=== PATIENT | male | born 1975 | race Caucasian/White ===

== ENCOUNTER 2019-09-27 03:19 | Emergency (ER) | payer OTHER ==
[2019-09-27] MEDS ORDERED: NA CHLORIDE 0.9% 2,000 ML ONE (03:39)
[2019-09-27] MEDS ORDERED: ACETAMINOPHEN 500 MG TAB ONE (03:39)
[2019-09-27] MEDS ORDERED: KETOROLAC 30 MG/ML INJ ONE (03:51)
[2019-09-27 03:52] LABS: Absolute Lymphocytes (CBC) 0.6 K/uL (0.7-4.9); Basophils % 0.6 % (0-1.3); Hematocrit 44.8 % (39.6-49.0); Lymphocytes % 5.2 % (15.3-44.8); MPV 8.5 fL (7.6-11.3); RBC Red Blood Cell Count 5.16 M/uL (4.33-5.43)
[2019-09-27] MEDS ORDERED: ONDANSETRON 4 MG/2 ML VIAL ONE (03:55)
[2019-09-27 03:57] LABS: Protime INR 1.12
[2019-09-27 04:27] LABS: ALT/SGPT 34 U/L (12-78); AST/SGOT 18 U/L (15-37); Albumin 4.3 g/dL (3.4-5.0); Alkaline Phosphatase 57 U/L (45-117); Amylase Level 41 U/L (25-115); BUN Blood Urea Nitrogen 12 mg/dL (7-18); Bicarbonate 25 mmol/L (21-32); Bilirubin Direct 0.1 mg/dL (0-0.2); Bilirubin Total 0.5 mg/dL (0.2-1.0); CKMB Creatine Kinase MB < 1.0 ng/mL (0.3-3.6); Creatine Phosphokinase 69 U/L (39-308); Glucose Level 112 mg/dL (74-106); Lipase 68 U/L (73-393); Potassium 3.7 mmol/L (3.5-5.1); Sodium Level 140 mmol/L (136-145); Troponin (Emerg Dept Use Only) < 0.02 ng/mL (0.0-0.045)
[2019-09-27 04:35] LABS: Blood Morphology Comment NOT SEEN (NOT SEEN); Platelet Estimate ADEQ
[2019-09-27] MEDS ORDERED: MORPHINE 4 MG/ML SYR ONE (05:18)
[2019-09-27 05:23] LABS: Urine Blood NEGATIVE (NEG); Urine Glucose NEGATIVE (NEG); Urine Protein NEGATIVE (NEG); Urine pH 8.5 (5.0-7.0)
[2019-09-27] MEDS ORDERED: FENTANYL CITR 100 MCG/2 ML ONE (05:23)
--- NOTE | 2019-09-27 05:57 | ER ---
Nurse's Notes [facility] Name: Neville Ocasio Age: 44 yrs Sex: Male : 1975 Arrival Date: 09/27/2019 Time: 03:22 Bed 5 Private MD: Diagnosis: Fever, unspecified;Viral infection, unspecified;Headache;Arthralgia Presentation: 09/26 03:35 Chief complaint: Patient states: Reports around 3 PM last night he started having joint ea pain, sore throat, nausea and fever. Pt reports taking tylenol and advil yesterday evening. Coronavirus screen: Proceed with normal triage. Ebola Screen: No symptoms or risks identified at this time. Initial Sepsis Screen: Does the patient meet any 2 criteria? Temp <36.0*C (96.8*F)) or > 38.3*C (100.9*F). HR > 90 bpm. Yes Does the patient have a suspected source of infection? No. Patient's initial sepsis screen is negative. Risk Assessment: Do you want to hurt yourself or someone else? Patient reports no desire to harm self or others. Onset of symptoms was September 27, 2019. 03:35 Method Of Arrival: Wheelchair ea 03:35 Acuity: SAHIL 3 ea Historical: - Allergies: 03:41 No Known Allergies; ea - Home Meds: 03:41 None [Active]; ea - PMHx: 03:41 None; ea - PSHx: 03:41 None; ea - Immunization history:: Adult Immunizations unknown. - Social history:: Smoking status: Patient reports the use of cigarette tobacco products, denies chronic smoking, but will smoke occasionally. Screenin:38 Abuse screen: Denies threats or abuse. Nutritional screening: No deficits noted. ea Tuberculosis screening: No symptoms or risk factors identified. Fall Risk None identified. Assessment: 03:41 General: Appears uncomfortable, Behavior is restless. Pain: Complains of pain in joint ea pain. Neuro: Level of Consciousness is awake, alert, obeys commands, Oriented to person, place, time, situation. Cardiovascular: Patient's skin is warm and dry. Respiratory: Airway is patent Respiratory effort is even, unlabored, Respiratory pattern is regular, symmetrical. Derm: Skin is pink, warm \T\ dry. 05:23 Reassessment: Patient and/or family updated on plan of care and expected duration. Pain rv level reassessed. Patient is alert, oriented x 3, equal unlabored respirations, skin warm/dry/pink. updated on the test results. Patient states feeling better. 06:12 Reassessment: Patient and/or family updated on plan of care and expected duration. Pain ea level reassessed. Patient is alert, oriented x 3, equal unlabored respirations, skin warm/dry/pink. Discharge instruction given to patient, verbalized the understanding of instruction. Pt left ED ambulatory tolerating well. Patient states feeling better. Vital Signs: 03:35 BP 97 / 81; Pulse 113; Resp 20; Temp 102.7(O); Pulse Ox 97% on R/A; Weight 127.01 kg; ea Height 6 ft. 2 in. (187.96 cm); 03:45 BP 109 / 70; Pulse 91; Resp 19; Pulse Ox 97% on R/A; rv 04:15 BP 101 / 59; Pulse 90; Resp 17; Temp 100.1; Pulse Ox 93% on R/A; rv 05:15 BP 96 / 56; Pulse 74; Resp 13; Temp 99.2; Pulse Ox 94% on R/A; rv 06:14 BP 110 / 68; Pulse 77; Resp 19; Pulse Ox 97% ; ea 03:35 Body Mass Index 35.95 (127.01 kg, 187.96 cm) ea ED Course: 03:22 Patient arrived in ED. ag3 03:24 Huang Truong RN is Primary Nurse. rv 03:35 Jean Carlos Slaughter MD is Attending Physician. kdr 03:38 Triage completed. ea 03:38 Arm band placed on right wrist. Patient placed in an exam room, on a stretcher, on ea pulse oximetry. 03:38 Patient has correct armband on for positive identification. Placed in gown. Bed in low ea position. Call light in reach. Side rails up X2. 03:40 Inserted saline lock: 18 gauge in right antecubital area, using aseptic technique. rv Blood collected. 03:40 Initial lab(s) drawn, by la, sent to lab. First set of blood cultures drawn by me. rv 04:00 Second set of blood cultures drawn by me. rv 04:01 Chest Single View XRAY In Process Unspecified. EDMS 06:13 No provider procedures requiring assistance completed. IV discontinued, intact, ea bleeding controlled, No redness/swelling at site. Pressure dressing applied. Administered Medications: 03:35 Drug: Tylenol 1000 mg Route: PO; rv 04:31 Follow up: Response: Temperature is decreased rv 03:40 Drug: NS 0.9% (30 ml/kg) 30 ml/kg Route: IV; Rate: bolus; Site: right antecubital; rv 06:00 Follow up: Response: No adverse reaction; IV Status: Completed infusion; IV Intake: ea 2000ml 03:45 Drug: TORadol - Ketorolac 15 mg Route: IVP; Site: right antecubital; rv 05:44 Follow up: Response: No adverse reaction ea 03:52 Drug: Zofran (Ondansetron) 4 mg Route: IVP; Site: right antecubital; rv 05:45 Follow up: Response: No adverse reaction ea 05:20 Not Given (Other Intervention Used): morphine 4 mg IVP once; RASS on ADMIN: Combtv4, ea Very Agttd3, Agttd2, Rstlss1, AlertClm0, Drwsy-1, Lt Sdtn-2, Mod Sdtn-3, Dp Sdtn-4, UnArsble-5 05:20 Drug: fentaNYL (PF) 50 mcg {Note: RASS 0.} Route: IVP; Site: right antecubital; ea 06:00 Follow up: Response: No adverse reaction; Pain is decreased ea Intake: 06:00 IV: 2000ml; Total: 2000ml. ea Outcome: 05:57 Discharge ordered by . kdr 06:14 Discharged to home ambulatory. ea 06:14 Condition: stable 06:14 Discharge instructions given to patient, Instructed on discharge instructions, follow up and referral plans. Demonstrated understanding of instructions, follow-up care, medications, Prescriptions given X 3. 06:15 Patient left the ED. ea Signatures: Dispatcher [employer] EDMS Jean Carlos Slaughter MD MD kdr Antunez, Elena RN RN Huang Serna RN RN Kelli Cardona ag3
--- NOTE | 2019-09-27 06:16 | EDPHYS ---
Physician Documentation [facility] Name: Neville Ocasio Age: 44 yrs Sex: Male : 1975 Arrival Date: 09/27/2019 Time: 03:22 Bed 5 Private MD: ED Physician Jean Carlos Slaughter HPI: 09/26 03:39 This 44 yrs old Male presents to ER via Wheelchair with complaints of Fever, kdr BODY PAIN. 03:39 The patient states that he started hurting all over and feeling feverish in the last 12 kdr hours. he has had s a similar episode about two years ago that resolved on its own after tow to three days. He did not seek treatment immediately then but waited a few days. He states that the s/s today are similar and that the source of the last infection was staph - he currently denies respiratory s/s. Primarily that he "hurts all over." he has had some nausea but no vomiting and no change in bowel habits. Onset: The symptoms/episode began/occurred gradually, yesterday. Severity of symptoms: At their worst the symptoms were moderate severe in the emergency department the symptoms are unchanged. The patient has not experienced similar symptoms in the past, The patient has experienced a previous episode, last year. The patient has not recently seen a physician. Historical: - Allergies: 03:41 No Known Allergies; ea - Home Meds: 03:41 None [Active]; ea - PMHx: 03:41 None; ea - PSHx: 03:41 None; ea - Immunization history:: Adult Immunizations unknown. - Social history:: Smoking status: Patient reports the use of cigarette tobacco products, denies chronic smoking, but will smoke occasionally. ROS: 03:39 Constitutional: Negative for weight loss - he has had fever and chills Eyes: Negative kdr for injury, pain, redness, and discharge, Neck: Negative for injury, pain, and swelling, Cardiovascular: Negative for chest pain, palpitations, and edema, Respiratory: Negative for shortness of breath, cough, wheezing, and pleuritic chest pain, Abdomen/GI: Negative for abdominal pain, nausea, vomiting, diarrhea, and constipation, Back: Negative for injury and pain, : Negative for injury, bleeding, discharge, and swelling, Skin: Negative for injury, rash, and discoloration, Neuro: Negative for headache, weakness, numbness, tingling, and seizure activity. Psych: Negative for depression, anxiety, suicide ideation, homicidal ideation, and hallucinations, Allergy/Immunology: Negative for hives, rash, and allergies, Endocrine: Negative for neck swelling, polydipsia, polyuria, polyphagia, and marked weight changes, Hematologic/Lymphatic: Negative for swollen nodes, abnormal bleeding, and unusual bruising. 03:39 ENT: Positive for sore throat. 03:39 MS/extremity: Positive for pain, tenderness, The patient states that he is hurting all over but especially his joints.. Exam: 03:39 Constitutional: This is a well developed, well nourished patient who is awake, alert, kdr and in mild to moderate distress. Head/Face: Normocephalic, atraumatic. Eyes: Pupils equal round and reactive to light, extra-ocular motions intact. Lids and lashes normal. Conjunctiva and sclera are non-icteric and not injected. Cornea within normal limits. Periorbital areas with no swelling, redness, or edema. Neck: Trachea midline, no thyromegaly or masses palpated, and no cervical lymphadenopathy. Supple, full range of motion without nuchal rigidity, or vertebral point tenderness. No Meningismus. Chest/axilla: Normal chest wall appearance and motion. Nontender with no deformity. No lesions are appreciated. Cardiovascular: Regular rate and rhythm with a normal S1 and S2. No gallops, murmurs, or rubs. Normal PMI, no JVD. No pulse deficits. Respiratory: Lungs have equal breath sounds bilaterally, clear to auscultation and percussion. No rales, rhonchi or wheezes noted. No increased work of breathing, no retractions or nasal flaring. Abdomen/GI: Soft, non-tender, with normal bowel sounds. No distension or tympany. No guarding or rebound. No evidence of tenderness throughout. Back: No spinal tenderness. No costovertebral tenderness. Full range of motion. Skin: Warm, dry with normal turgor. Normal color with no rashes, no lesions, and no evidence of cellulitis. MS/ Extremity: Pulses equal, no cyanosis. Neurovascular intact. Full, normal range of motion. Pain wiht motioin of joints Neuro: Awake and alert, GCS 15, oriented to person, place, time, and situation. Cranial nerves II-XII grossly intact. Motor strength 5/5 in all extremities. Sensory grossly intact. Cerebellar exam normal. Normal gait. Psych: Awake, alert, with orientation to person, place and time. Behavior, mood, and affect are within normal limits. 04:46 ECG was reviewed by the Attending Physician. kdr Vital Signs: 03:35 BP 97 / 81; Pulse 113; Resp 20; Temp 102.7(O); Pulse Ox 97% on R/A; Weight 127.01 kg; ea Height 6 ft. 2 in. (187.96 cm); 03:45 BP 109 / 70; Pulse 91; Resp 19; Pulse Ox 97% on R/A; rv 04:15 BP 101 / 59; Pulse 90; Resp 17; Temp 100.1; Pulse Ox 93% on R/A; rv 05:15 BP 96 / 56; Pulse 74; Resp 13; Temp 99.2; Pulse Ox 94% on R/A; rv 06:14 BP 110 / 68; Pulse 77; Resp 19; Pulse Ox 97% ; ea 03:35 Body Mass Index 35.95 (127.01 kg, 187.96 cm) ea MDM: 03:57 Data reviewed: vital signs, nurses notes, lab test result(s), radiologic studies. kdr 05:57 Patient medically screened. kdr 06:03 ED course: The patient was feeling and looking much better. He was happy with the care kdr provided and the plan for discharge and follow-up. 09/26 03:37 Order name: Amylase, Serum kdr 09/26 03:37 Order name: Basic Metabolic Panel kdr 09/26 03:37 Order name: Blood Culture Adult (2) kdr 09/26 03:37 Order name: CBC with Diff kdr 09/26 03:37 Order name: Ckmb kdr 09/26 03:37 Order name: CPK kdr 09/26 03:37 Order name: Lactate kdr 09/26 03:37 Order name: LFT's kdr 09/26 03:37 Order name: Lipase kdr 09/26 03:37 Order name: Procalcitonin; Complete Time: 04:45 kdr 09/26 03:37 Order name: Protime (+inr); Complete Time: 04:45 kdr 09/26 03:37 Order name: Ptt, Activated; Complete Time: 04:45 kdr 09/26 03:37 Order name: Troponin (emerg Dept Use Only); Complete Time: 04:45 kdr 09/26 03:37 Order name: Urine Microscopic Only [facility] 09/26 03:37 Order name: ESR; Complete Time: 04:45 kdr 09/26 03:37 Order name: CRP; Complete Time: 04:45 kdr 09/26 03:38 Order name: Amylase Level; Complete Time: 04:45 EDMS 09/26 03:38 Order name: Basic Metabolic Panel; Complete Time: 04:45 EDMS 09/26 03:38 Order name: Blood Culture EDMS 09/26 03:38 Order name: CBC with Automated Diff; Complete Time: 04:45 EDMS 09/26 03:38 Order name: CKMB Creatine Kinase MB; Complete Time: 04:45 EDMS 09/26 03:38 Order name: Creatine Phosphokinase; Complete Time: 04:45 EDMS 09/26 03:38 Order name: Lactate; Complete Time: 04:45 EDMS 09/26 03:38 Order name: Liver (Hepatic) Function; Complete Time: 04:45 EDMS 09/26 03:38 Order name: Lipase; Complete Time: 04:45 EDMS 09/26 03:55 Order name: Flu; Complete Time: 04:45 rv 09/26 03:55 Order name: Strep; Complete Time: 04:45 rv 09/26 04:35 Order name: Manual Differential; Complete Time: 04:45 EDMS 09/26 05:12 Order name: Throat Culture EDIN 09/26 05:18 Order name: Urine Dipstick--Ancillary (enter results); Complete Time: 05:49 dh4 09/26 03:37 Order name: Chest Single View XRAY [facility] 09/26 05:07 Interpretation: NAD. kdr 09/26 03:37 Order name: Accucheck; Complete Time: 03:52 kdr 09/26 03:37 Order name: Cardiac monitoring; Complete Time: 03:52 kdr 09/26 03:37 Order name: EKG - Nurse/Tech; Complete Time: 03:52 kdr 09/26 03:37 Order name: IV Saline Lock - Large Bore; Complete Time: 03:52 kdr 09/26 03:37 Order name: Labs collected and sent; Complete Time: 03:52 kdr 09/26 03:37 Order name: O2 Per Protocol; Complete Time: 03:52 kdr 09/26 03:37 Order name: O2 Sat Monitoring; Complete Time: 03:52 kdr 09/26 03:37 Order name: Urine Dipstick-Ancillary (obtain specimen); Complete Time: 05:22 kdr EC:46 Rate is 94 beats/min. Rhythm is regular, Normal Sinus Rhythm with No ectopy. QRS [place] kdr is Normal. ID interval is normal. QRS interval is normal. QT interval is normal. Clinical impression: NSR w/ Non-specific ST/T Changes. Administered Medications: 03:35 Drug: Tylenol 1000 mg Route: PO; rv 04:31 Follow up: Response: Temperature is decreased rv 03:40 Drug: NS 0.9% (30 ml/kg) 30 ml/kg Route: IV; Rate: bolus; Site: right antecubital; rv 06:00 Follow up: Response: No adverse reaction; IV Status: Completed infusion; IV Intake: ea 2000ml 03:45 Drug: TORadol - Ketorolac 15 mg Route: IVP; Site: right antecubital; rv 05:44 Follow up: Response: No adverse reaction ea 03:52 Drug: Zofran (Ondansetron) 4 mg Route: IVP; Site: right antecubital; rv 05:45 Follow up: Response: No adverse reaction ea 05:20 Not Given (Other Intervention Used): morphine 4 mg IVP once; RASS on ADMIN: Combtv4, ea Very Agttd3, Agttd2, Rstlss1, AlertClm0, Drwsy-1, Lt Sdtn-2, Mod Sdtn-3, Dp Sdtn-4, UnArsble-5 05:20 Drug: fentaNYL (PF) 50 mcg {Note: RASS 0.} Route: IVP; Site: right antecubital; ea 06:00 Follow up: Response: No adverse reaction; Pain is decreased ea Disposition: 09/27/19 05:57 Discharged to Home. Impression: Fever, unspecified, Viral infection, unspecified, Headache, Arthralgia. - Condition is Stable. - Discharge Instructions: Fever, Adult, General Headache Without Cause, [id number]. - Prescriptions for ketorolac 10 mg Oral tablet - take 1 tablet by ORAL route every 4-6 hours As needed not to exceed 40 mg in 24hrs; 12 tablet. Tramadol 50 mg Oral Tablet - take 1 tablet by ORAL route every 8 hours as needed; 12 tablet. Zofran 4 mg Oral Tablet - take 1 tablet by ORAL route every 4-6 hours As needed; 16 tablet. - Medication Reconciliation Form, Thank You Letter, Prescription Opioid Use form. - Follow up: Private Physician; When: 2 - 3 days; Reason: If symptoms return, Further diagnostic work-up, Recheck today's complaints, Continuance of care, Re-evaluation by your physician. - Problem is new. - Symptoms have improved. Signatures: Dispatcher [employer] EDMS Jean Carlos Slaughter MD MD kdr Antunez, Elena, RN RN Huang Serna RN RN rv Corrections: (The following items were deleted from the chart) 06:15 05:57 09/27/2019 05:57 Discharged to Home. Impression: Fever, unspecified; Viral ea infection, unspecified; Headache; Arthralgia. Condition is Stable. Forms are Medication Reconciliation Form, Thank You Letter, Antibiotic Education, Prescription Opioid Use. Follow up: Private Physician; When: 2 - 3 days; Reason: If symptoms return, Further diagnostic work-up, Recheck today's complaints, Continuance of care, Re-evaluation by your physician. Problem is new. Symptoms have improved. kdr
[2019-09-27 06:39] VITALS: BP 110/68; O2SAT 97
[2019-09-27 06:41] VITALS: TEMP 99.2
[2019-09-27 07:09] LABS: Urine Bacteria <20 /HPF (NONE SEEN); Urine Culture Reflex Order NOT NEEDED; Urine RBC <5 /HPF (NONE SEEN)
--- NOTE | 2019-09-27 11:15 | RAD REPORT ---
EXAM DESCRIPTION: [place] Single View09/27/2019 4:01 am CLINICAL HISTORY: fever COMPARISON: none FINDINGS: The lungs appear clear of acute infiltrate. The heart is normal size IMPRESSION: No acute abnormalities displayed
--- NOTE | 2019-09-29 20:17 | EKG ---
Test Date: 2019-09-27 Test Time: 03:47:49 Permastone Mechanic: RV MEASUREMENT RESULTS: Intervals: Rate: 94 VT: 160 QRSD: 94 QT: 312 QTc: 390 [place]: P: 24 VT: 160 QRS: 37 T: -7 INTERPRETIVE STATEMENTS: Normal sinus rhythm Cannot rule out Inferior infarct, age undetermined Abnormal ECG No previous ECG available for comparison Electronically Signed On 09-29-19 20:11:32 CDT by Chauncey Van
== END 2019-09-27 06:15 | disposition home or self-care (01) ==
LOC: ER 03:19
DX: B34.9 Viral infection, unspecified (principal); R51 Headache; M25.50 Pain in unspecified joint; Z72.0 Tobacco use
CPT/HCPCS: 96365; 93005; 87040 ×2; 87070; 85025; 80048; 36415; 82150; 82550; 85610; 80076; 87081; 83605; 85730; 85652; 84484; 82553; 83690; 84145; 86140; 87804 ×2; 71045; 96375; 99284; 96366; J3010; J7030; J2405; 81003; 81015